=== PATIENT | female | born 1935 | race Caucasian/White ===

== ENCOUNTER 2016-11-13 16:33 | Inpatient (IN) ==
--- NOTE | 2016-11-13 19:18 | Emergency Department Note ---
Disposition Clinical Impression: Atrial fibrillation with RVR, DVT (deep venous thrombosis) Disposition: Admitted As Inpatient Referrals: Haven Laurent MD [Primary Care Provider] - Forms: ED Satisfaction Letter General Adult HPI - General Chief complaint: ED Extremity Problem,Nontraumatic Stated complaint: possible DVT R leg Time Seen by Provider: 11/13/16 18:50 Source: patient Limitations: no limitations - History of Present Illness HPI Narrative: This is an 81-year-old female who is a poor historian. She lets the family answer most questions for her. She has been seeing Dr. Gregory as her for peripheral vascular disease and apparently had an arterial occlusion of the right leg some time ago. She is not currently on any anticoagulants. She went to the [facility] urgent care and apparently got a Doppler of the right leg shows evidence of an acute occlusive thrombus in the right posterior tibial. So she does have a DVT. She was then sent in the emergency department from there. The patient does look dyspneic. Apparently she has chronic dyspnea and lives on oxygen at home. She was noted to have a low pulse ox on arrival Pain Scale: 4 - Related Data Home Medications Medication Instructions Recorded Confirmed Albuterol Sulfate [Ventolin Hfa] 2 puff IH TID PRN 01/24/16 05/25/16 Aspirin [Lo-Dose Aspirin EC] 81 mg PO DAILY 01/24/16 05/25/16 Atorvastatin [Lipitor] 40 mg PO DAILY 01/24/16 05/25/16 Calcium Carbonate [Calcium] 1,500 mg PO BID 01/24/16 05/25/16 Carvedilol [Coreg] 25 mg PO BID 01/24/16 05/25/16 Furosemide [Lasix] 20 mg PO DAILY 01/24/16 05/25/16 Iron Polysaccharide Complex 300 mg PO DAILY 01/24/16 05/25/16 [Ferrex 150] Levothyroxine Sodium [Tirosint] 50 mcg PO DAILY 01/24/16 05/25/16 Tramadol HCl [Tramadol HCl ER] 50 mg PO QID PRN 01/24/16 05/25/16 Budesonide/Formoterol 160/4.5 2 puff IH BIDR 04/26/16 05/25/16 [Symbicort 160/4.5] LORazepam [Ativan] 0.5 mg PO BID PRN 05/25/16 05/25/16 Oxygen 2 l NS DAILY PRN 05/25/16 05/25/16 Previous Rx's Medication Instructions Recorded HYDROcodone/Acet 5/325 mg [[place] 1 tab PO Q4H PRN #40 tablet 05/26/16 5-325 mg] Allergies Allergy/AdvReac Type Severity Reaction Status Date / Time Sulfa (Sulfonamide Allergy See Verified 05/25/16 07:08 Antibiotics) Comments All systems ED: reviewed and negative except as stated. Constitutional: Denies: fever Cardiovascular: Denies: chest pain Respiratory: Reports: dyspnea Gastrointestinal: Denies: abdominal pain Past Medical History - Past Medical History Attestation: Yes The following information was validated with the patient. Medical history: Reports: non-contributory, CHF, COPD, coronary artery disease, hyperlipidemia, hypertension, osteoporosis, renal disease, valvular heart disease Surgical history: Reports: appendectomy, cholecystectomy, orthopedic, other Psychiatric history: Reports: no psych history - Social History Smoking Status: Former smoker Smokeless Tobacco Status: No Alcohol use: Reports: none Drug use: Reports: none Physical Exam - General Limitations: no limitations General appearance: alert - Head Head exam: atraumatic - Eye Eye exam: Present: PERRL - ENT ENT exam: normal oropharynx - Respiratory Respiratory exam: Present: wheezes, other (Diminishment bilaterally) - Cardiovascular Cardiovascular exam: Present: tachycardia, irregular rhythm - Abdominal Exam Abdominal exam: Present: soft, Non-Tender - Extremities Exam Extremities exam: Present: other (She has diminished pulses in both lower extremities. Warm to touch on both sides. Normal capillary refill. No tenderness. ) Course Course Narrative: This patient presented with a report indicating new onset DVT in the right posterior tibial. However she is noted to be dyspneic and it is unclear if this is more of a chronic issue. It does kind of seemed that way. However we need to rule her out for pulmonary embolism. We ordered a CTA of the chest which was negative for pulmonary embolism but incidental aortic aneurysm found. She was also found to be in atrial fibrillation with rapid ventricular response. I ordered a Cardizem drip and we are starting her on Lovenox. I discussed the case with the hospitalist to arrange for admission. Vital Signs Temperature 98 F 11/13/16 16:55 Pulse Rate 95 11/13/16 16:55 Respiratory Rate 16 11/13/16 16:55 Blood Pressure 104/65 11/13/16 16:55 O2 Sat by Pulse Oximetry 92 11/13/16 16:55 Temperature 98 F 11/13/16 16:55 Pulse Rate 128 11/13/16 20:00 Respiratory Rate 16 11/13/16 20:00 Blood Pressure 114/85 11/13/16 20:00 O2 Sat by Pulse Oximetry 97 11/13/16 20:00 Oxygen Delivery Oxygen Delivery Nasal Cannula Medical Decision Making - Medical Records Medical records reviewed: Yes I reviewed the patient's medical records. - Lab Data Lab results reviewed: Yes I reviewed the patient's lab results. Result diagrams: 11/13/16 19:35 11/13/16 19:35 Lab Results 11/13/16 11/13/16 11/13/16 Range/Units 19:35 19:35 19:35 WBC 7.7 (4.3-11.1) K/mcL RBC 4.35 (3.82-4.97) M/mcL Hgb 12.4 (11.5-15.4) g/dL Hct 41.8 (35.3-44.9) % MCV 96.1 (83.0-100.0) fL MCH 28.5 (28.0-33.3) pg MCHC 29.7 L (31.6-35.5) g/dL RDW 15.6 H (11.5-14.5) % Plt Count 140 (140-400) K/mcL MPV 11.1 (9.4-12.4) fL Immature Gran % 0.3 (0-4) % Seg Neutrophils % 76.8 % Lymphocytes % 13.9 % Monocytes % 6.6 % Eosinophils % 1.8 % Basophils % 0.6 % Neutrophils # 5.9 (1.6-8.9) K/mcL Lymphocytes # 1.1 (0.6-4.6) K/mcL Monocytes # 0.5 (0.0-1.3) K/mcL Eosinophils # 0.1 (0.0-0.6) K/mcL Basophils # 0.1 (0.0-0.2) K/mcL PT 12.5 H (9.4-12.1) Seconds INR 1.2 Sodium 143 (136-145) mEq/L Potassium 4.4 (3.5-4.5) mEq/L Chloride 103 (98-109) mEq/L Carbon Dioxide 30 H (19-29) mEq/L BUN 31 H (7-20) mg/dL Creatinine 1.21 H (0.57-1.11) mg/dL Est GFR ( Amer) 52 L (> 60) Est GFR (Non-Af Amer) 43 L (> 60) BUN/Creatinine Ratio 26 (6-26) Glucose 89 (70-99) mg/dL Calculated Osmolality 302 H (280-300) Calcium 9.8 (8.6-10.8) mg/dL Troponin I (0-0.03) ng/mL B-Natriuretic Peptide (0-100) pg/mL 11/13/16 11/13/16 Range/Units 19:35 19:35 WBC (4.3-11.1) K/mcL RBC (3.82-4.97) M/mcL Hgb (11.5-15.4) g/dL Hct (35.3-44.9) % MCV (83.0-100.0) fL MCH (28.0-33.3) pg MCHC (31.6-35.5) g/dL RDW (11.5-14.5) % Plt Count (140-400) K/mcL MPV (9.4-12.4) fL Immature Gran % (0-4) % Seg Neutrophils % % Lymphocytes % % Monocytes % % Eosinophils % % Basophils % % Neutrophils # (1.6-8.9) K/mcL Lymphocytes # (0.6-4.6) K/mcL Monocytes # (0.0-1.3) K/mcL Eosinophils # (0.0-0.6) K/mcL Basophils # (0.0-0.2) K/mcL PT (9.4-12.1) Seconds INR Sodium (136-145) mEq/L Potassium (3.5-4.5) mEq/L Chloride (98-109) mEq/L Carbon Dioxide (19-29) mEq/L BUN (7-20) mg/dL Creatinine (0.57-1.11) mg/dL Est GFR ( Amer) (> 60) Est GFR (Non-Af Amer) (> 60) BUN/Creatinine Ratio (6-26) Glucose (70-99) mg/dL Calculated Osmolality (280-300) Calcium (8.6-10.8) mg/dL Troponin I 0.03 (0-0.03) ng/mL B-Natriuretic Peptide 3252 H (0-100) pg/mL - Radiology Data Radiology results reviewed: Yes I reviewed the patient's radiology results. Critical Care Time Critical Care Time: Yes ( ) Total Critical Care Time: 30 Attestation: There was a high probability of clinically significant and/or life-threatening deterioration in the course of this patient's care required my daily intervention. Total critical care time of 30 minutes exclusive of procedures.
[2016-11-13 19:41] LABS: Basophils # 0.1 K/mcL (0.0-0.2); Basophils % 0.6 %; Eosinophils # 0.1 K/mcL (0.0-0.6); Eosinophils % 1.8 %; Hematocrit 41.8 % (35.3-44.9); Hemoglobin 12.4 g/dL (11.5-15.4); Immature Granulocytes % 0.3 % (0-4); Lymphocytes # 1.1 K/mcL (0.6-4.6); Lymphocytes % 13.9 %; Mean Corpuscular HGB Conc 29.7 g/dL (31.6-35.5); Mean Corpuscular Hemoglobin 28.5 pg (28.0-33.3); Mean Corpuscular Volume 96.1 fL (83.0-100.0); Mean Platelet Volume 11.1 fL (9.4-12.4); Monocytes # 0.5 K/mcL (0.0-1.3); Monocytes % 6.6 %; Neutrophils # 5.9 K/mcL (1.6-8.9); Platelet Count 140 K/mcL (140-400); Red Blood Count 4.35 M/mcL (3.82-4.97); Red Cell Distribution Width 15.6 % (11.5-14.5); Segmented Neutrophils % 76.8 %
[2016-11-13 19:48] LABS: INR 1.2; Prothrombin Time 12.5 Seconds (9.4-12.1)
[2016-11-13 19:54] LABS: Calcium 9.8 mg/dL (8.6-10.8); Potassium 4.4 mEq/L (3.5-4.5)
[2016-11-13] MEDS ORDERED: Enoxaparin Weight Dosing SQ STA (22:07)
[2016-11-13] MEDS ORDERED: *HR* Enoxaparin 60 MG/0.6 ML SYRINGE SQ STA (22:09)
[2016-11-13 22:51] LABS: Thyroid Stimulating Hormone 3.81 mcIU/mL (0.350-4.840)
[2016-11-13] MEDS ORDERED: Naloxone 0.4 MG/ML INJ IVP PRN (23:53)
[2016-11-13] MEDS ORDERED: Ondansetron 4 MG/2 ML VIAL IVP PRN (23:53)
[2016-11-13] MEDS ORDERED: Acetaminophen 325 MG TABLET PO PRN (23:53)
--- NOTE | 2016-11-14 00:35 | Internal Med History&Physical ---
Date of Encounter: 11/14/16 Time of Encounter: 00:33 Assessment and Plan (1) Atrial fibrillation with RVR Current visit: Yes Status: Acute Patient does not have a history of atrial fibrillation. She has a history of worsening shortness of breath over the past one month. She was sent to the emergency department due to new onset DVT. Incidentally, she was found to have atrial fibrillation with RVR. Patient be admitted to the hospital to inpatient status. Expected to be in hospital for at least 2 midnights. Expected discharge disposition is to home. High risk due to risk of lethal arrhythmias. Echocardiogram will be obtained. Patient's heart rate is already under better control with Cardizem drip. We will place the patient on by mouth Cardizem and discontinue the drip. Patient is already on Coreg 25 mg by mouth twice a day. Will continue the same. Check TSH level. Cardiology consult. Patient follows up with Dr. Bee as an outpatient. [id number] score of 5 (1 for hypertension, 2 for age, 1 for vascular risk factors and 1 for female sex) Patient received a single dose of Lovenox in the emergency department. As the patient has chronic kidney disease stage III, will refrain from using further Lovenox. Will await cardiology consult for further recommendations about anticoagulation. Start heparin drip 12 hours after last lovenox dose. (2) DVT (deep venous thrombosis) Current visit: Yes Status: Acute Patient has received a single dose of Lovenox. Given her chronic kidney disease stage III, we will start her on heparin drip. Patient will require lifelong anticoagulation due to her atrial fibrillation. Will await cardiology input regarding choice of anticoagulant. Qualifiers: DVT location: lower extremity Affected thrombotic vein of extremity: popliteal Laterality: right Chronicity: acute Qualified Code(s): I82.431 - Acute embolism and thrombosis of right popliteal vein (3) CHF (congestive heart failure) Current visit: Yes Status: Chronic Patient had an echo in February 2015 which revealed diastolic dysfunction with preserved ejection fraction. Patient appears euvolemic. Gentle hydration as the patient received intravenous contrast dye. Repeat echocardiogram due to new onset atrial fibrillation. Cardiac consult. Qualifiers: Congestive heart failure type: diastolic Congestive heart failure chronicity: chronic Qualified Code(s): I50.32 - Chronic diastolic (congestive ) heart failure (4) Essential hypertension Current visit: Yes Status: Chronic Control blood pressure. Hold KRISTINE inhibitor due to receiving contrast dye and her renal function. Monitor renal function and urine output. (5) CKD (chronic kidney disease) Current visit: Yes Status: Acute Sees Dr. Sloan. Renal function is stable and at baseline. If worsens, will consult renal. Qualifiers: Chronic kidney disease stage: stage 3 (moderate) Qualified Code(s): N18.3 - Chronic kidney disease, stage 3 (moderate) (6) COPD (chronic obstructive pulmonary disease) Current visit: Yes Status: Chronic Stable without exacerbation. Resume home meds. Qualifiers: COPD type: emphysema Emphysema type: panlobular Qualified Code(s): J43.1 - Panlobular emphysema Internal Medicine - H&P: HPI Chief complaint: DVT Admitted From: Emergency Dept Plans for Post Hospital Care: Home History of present illness: Ms. Estrada is a 81 year old female who presents to the emergency department after she was found to have a DVT at [facility]. 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 The patient has been having swelling in her right lower extremity. For this, Dopplers of her right lower extremity were ordered. The patient had this test performed today morning. A DVT was found in the right popliteal vein. Hence, the patient was sent to the emergency department. In the emergency department, the patient was found to have atrial fibrillation with rapid ventricular response. She was placed on a Cardizem drip and is being admitted for the same. The patient is accompanied in the room by her son, [id number] and grandson. They have assisted with providing history. According to the family, the patient has become more short of breath over the past month. Apparently, the patient has oxygen at home but usually does not use it. However, over the last month, the patient has been using 2 L of oxygen intermittently during the day and all through the night which is unusual for her. The patient has been complaining of shortness of breath. She denies any orthopnea or paroxysmal nocturnal dyspnea. She denies any cough or wheezing. She reports intermittent palpitations, lightheadedness and headaches. She denies any chest pain or tightness. She denies any fever or chills. She reports chronic abdominal pain but no acute exacerbation. She denies any diarrhea or constipation, nausea or vomiting. She reports swelling in her right lower extremity for which she had the Dopplers performed. Past Med Surg Social Fam HX - Past Medical History Attestation: Yes The following information was validated with the patient. Source: patient, obtained from family Medical history: CHF, COPD, hyperlipidemia, hypertension, osteoporosis, renal disease, valvular heart disease Psychiatric history: no psych history - Past Surgical History Surgical History: appendectomy, cholecystectomy, orthopedic, other - Social History Smoking Status: Former smoker Smokeless Tobacco Status: No Alcohol use: none Drug use: none Current living situation: Home, With Family Activity Level: Uses cane/walker Recent Out of Country Travel Within the Last 8 Weeks: No Exposure or Possible Exposure to Illness During Travel: No - Family History Son Name: Hiram estrada Age: 57 Living Status: Still Living Hx Family Cardiac Disorders: No Hx Family Respiratory Disorders: No Hx Family Cancer: No Hx Family GI Disorders: No Hx Family Genitourinary Disorders: No Hx Family Endocrine Disorder: No Hx Family Musculoskeletal Disorders: No Hx Family Neuromuscular Disorders: No Hx Family Neurologic Disorders: No Hx Family HEENT Disorders: No Hx Family Autoimmune Disorders: No Hx Family Reproductive Disorders: No Hx Family Psychosocial Disorders: No Hx Family Medical Disorders: No Internal Medicine - H&P: Meds Albuterol Sulfate [Ventolin Hfa] 2 puff IH TID PRN 01/24/16 [History] Aspirin [Lo-Dose Aspirin EC] 81 mg PO DAILY 01/24/16 [History] Atorvastatin [Lipitor] 40 mg PO HS 01/24/16 [History] Calcium Carbonate [Calcium] 1,500 mg PO BID 01/24/16 [History] Carvedilol [Coreg] 25 mg PO BID 01/24/16 [History] Furosemide [Lasix] 20 mg PO DAILY 01/24/16 [History] Iron Polysaccharide Complex [Ferrex 150] 300 mg PO DAILY 01/24/16 [History] Levothyroxine Sodium [Tirosint] 50 mcg PO QAM 01/24/16 [History] Budesonide/Formoterol 160/4.5 [Symbicort 160/4.5] 2 puff IH BIDR 04/26/16 [ History] LORazepam [Ativan] 0.5 mg PO BID PRN 05/25/16 [History] Oxygen 2 l NS DAILY PRN 05/25/16 [History] Albuterol Neb [Proventil Neb] 2.5 mg IH TID PRN 11/13/16 [History] Calcitriol [Rocaltrol] 0.25 mcg PO DAILY 11/13/16 [History] Tiotropium [Spiriva] 18 mcg IH 0700 11/13/16 [History] Tramadol HCl [Ultram] 50 mg PO Q6H PRN 11/13/16 [History] Allergies Sulfa (Sulfonamide Antibiotics) Allergy (Verified 05/25/16 07:08) See Comments patient cannot remember reaction to medication All Systems PM: A 10-system review of systems was performed and is negative for pertinent findings except as documented above in the HPI. Review of systems: 10 systems have been reviewed and are negative except as mentioned in the history of present illness - Constitutional Vitals: Temp Pulse Resp BP Pulse Ox 98.3 F 98 20 110/72 95 11/13/16 23:30 11/13/16 23:30 11/13/16 23:30 11/13/16 23:30 11/13/16 23:30 Exam: Gen.: Lying in bed. No acute distress. Eyes: Pupils equal, round and reactive to light. Extraocular muscles intact. ENT: Dry mucous membranes. No oropharyngeal erythema or discharge. Chest: Clear to auscultation bilaterally. No adventitious sounds present. CVS: First and second heart sounds present. No murmurs, rubs or gallops. Irregularly irregular rate and rhythm. Tachycardia present. 2+ pitting pedal edema in the right lower extremity. Abdomen: Soft, nontender, nondistended. Bowel sounds present. No hepatosplenomegaly. Skin: No decubitus ulcers appreciated. Erythema over the right lower extremity. Tenderness to palpation over the right calf. 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 Psychiatric: Alert, awake and oriented to time, place and person. Lymphatic system: No lymphadenopathy appreciated Internal Med - H&P Results - Labs CBC & Chem 7: 11/13/16 19:35 11/13/16 19:35 - EKG Data -: EKG Interpreted by Myself (Atrial fibrillation with rapid ventricular response) EKG shows normal: QRS complexes (Right bundle branch block) Rate: tachycardia - EKG Data Prior EKG available for review: yes When compared to previous EKG: there are significant changes Interpretation IM: other (New onset atrial fibrillation) - Diagnostic Studies Chest x-ray Status: image reviewed by me (No acute infiltrates or abnormalities seen) Other Images Additional comments: Nuclear stress test in May 2016 was negative for reversible ischemia Echocardiogram in February 2015 reveals ejection fraction of 60%, moderate left ventricular diastolic dysfunction. It was a dull motion consistent with bundle branch block. Mild to moderate aortic regurgitation.
[2016-11-14] MEDS ORDERED: NON-FORMULARY MEDICATION 1 EACH EACH (Oxygen [Oxygen] 2 L) NS PRN (00:40)
[2016-11-14] MEDS ORDERED: 0.9 % Sodium Chloride 1,000 ML IVC SCH (00:45)
[2016-11-14] MEDS ORDERED: *HR* Heparin 5,000 UNIT/ML VIAL IVP ONE ×2 (00:55→10:30)
[2016-11-14] MEDS ORDERED: *HR* Heparin 5,000 UNIT/ML VIAL IVP PRN ×3 (00:55→10:30)
[2016-11-14] MEDS ORDERED: Heparin 25,000 UNIT/500 ML D5W 25,000 UNIT/500 ML MLS IVC SCH (01:00)
[2016-11-14 03:23] LABS: Basophils # 0.1 K/mcL (0.0-0.2); Basophils % 0.8 %; Eosinophils # 0.2 K/mcL (0.0-0.6); Hematocrit 39.7 % (35.3-44.9); Hemoglobin 11.8 g/dL (11.5-15.4); Immature Granulocytes % 0.3 % (0-4); Lymphocytes # 1.2 K/mcL (0.6-4.6); Lymphocytes % 16.4 %; Mean Corpuscular HGB Conc 29.7 g/dL (31.6-35.5); Mean Corpuscular Hemoglobin 29.3 pg (28.0-33.3); Mean Corpuscular Volume 98.5 fL (83.0-100.0); Mean Platelet Volume 12.1 fL (9.4-12.4); Monocytes # 0.5 K/mcL (0.0-1.3); Monocytes % 6.1 %; Neutrophils # 5.5 K/mcL (1.6-8.9); Platelet Count 128 K/mcL (140-400); Red Blood Count 4.03 M/mcL (3.82-4.97); Red Cell Distribution Width 15.4 % (11.5-14.5); Segmented Neutrophils % 74.4 %
[2016-11-14 03:30] LABS: INR 1.2; Prothrombin Time 12.5 Seconds (9.4-12.1)
[2016-11-14 03:40] LABS: Albumin 2.9 g/dL (3.5-5.0); Albumin/Globulin Ratio 1.3 (1.1-2.2); Bilirubin,Total 1.1 mg/dL (0.2-1.2); Calcium 9.7 mg/dL (8.6-10.8); Globulin 2.3 g/dL (2.4-3.5); Potassium 4.2 mEq/L (3.5-4.5); Total Protein 5.2 g/dL (6.0-8.3)
[2016-11-14] MEDS ORDERED: Tiotropium 18 MCG inhalation IH SCH (07:00)
[2016-11-14] MEDS: traMADol 50 MG TABLET PO PRN (07:07)
[2016-11-14] MEDS: Iron Polysaccharide Complex 150 MG CAPSULE PO SCH (08:49)
[2016-11-14] MEDS: Aspirin Enteric Coated 81 MG Tablet PO SCH (08:50)
[2016-11-14] MEDS: Budesonide/Formoterol 160/4.5 MDI IH SCH ×2 (09:05→22:22)
--- NOTE | 2016-11-14 09:52 | Cardiology Consult Note ---
Date of Encounter: 11/14/16 Time of Encounter: 09:00 Assessment and Plan (1) Atrial fibrillation with RVR Current Visit: Yes Status: Acute This is a resident progress note pending review by attending front desk associate For rate control continue Cardizem short acting today. Evaluate in morning and likely switch to long acting Continue Coreg 25 mg BID [id number] of 5, no h/o GI or other bleed per patient Anticoagulation with novel vs. Coumadin. Will obtain cost information of anticoagulant options (2) CHF (congestive heart failure) Current Visit: Yes Status: Chronic Euvolemic Echocardiogram pending Qualifiers: Congestive heart failure type: diastolic Congestive heart failure chronicity: chronic Qualified Code(s): I50.32 - Chronic diastolic (congestive ) heart failure (3) Aortic aneurysm Current Visit: Yes Status: Acute 5 cm aneurysm of ascending aorta on CTA Consider involvement of cardiothoracic team Qualifiers: Qualified Code(s): I71.9 - Aortic aneurysm of unspecified site, without rupture (4) Essential hypertension Current Visit: Yes Status: Chronic BP stable Continue current medications Discussion w patient/family: The assessment and plan as outlined above was discussed with the patient and/or family members who expressed understanding and agreement. All questions were answered. Thank you for involving us in the care of your patient. Please call with any questions. History of Present Illness Consult date: 11/14/16 Consult reason: New onset a. fib Chief complaint: New onset a. fib History of present illness: Ms. Estrada is a 81 year old female with past medical history including PVD, history of arterial occlusion of the right lower extremity not on anticoagulation, COPD on oxygen at home recently increased to 2 L continuously. She was reportedly seen at [place] urgent care yesterday for dyspnea where Doppler ultrasound was positive for DVT of the right posterior tibial vein. Upon arrival to the ED CTA chest was negative for PE. Patient was found to be in A. fib with RVR, started on Cardizem and Lovenox. [id number] = 5. Lovenox was started in emergency department but discontinued by hospitalist team secondary to CKD and started on heparin. Heart rate has been stable. Initial troponins 0.03, 0.02, 0.03. TSH normal. BNP = 3252. The patient had an echocardiogram in 2014 that showed moderate diastolic dysfunction with preserved ejection fraction of 60%, dull motion consistent with bundle branch block, and mild-moderate aortic regurgitation. Patient was seen and evaluated this morning and reports that her breathing is improved today. She denies chest pain, shortness of breath, palpitations or new complaints Past Med Surg Social Fam HX - Past Medical History Medical history: CHF, COPD, hyperlipidemia, hypertension, osteoporosis, renal disease, valvular heart disease Psychiatric history: no psych history - Past Surgical History Surgical History: appendectomy, cholecystectomy, orthopedic, other - Social History Smoking Status: Former smoker Smokeless Tobacco Status: No Alcohol use: none Drug use: none - Family History Son Name: Hiram estrada Age: 57 Living Status: Still Living Hx Family Cardiac Disorders: No Hx Family Respiratory Disorders: No Hx Family Cancer: No Hx Family GI Disorders: No Hx Family Genitourinary Disorders: No Hx Family Endocrine Disorder: No Hx Family Musculoskeletal Disorders: No Hx Family Neuromuscular Disorders: No Hx Family Neurologic Disorders: No Hx Family HEENT Disorders: No Hx Family Autoimmune Disorders: No Hx Family Reproductive Disorders: No Hx Family Psychosocial Disorders: No Hx Family Medical Disorders: No Medications and Allergies Albuterol Sulfate [Ventolin Hfa] 2 puff IH TID PRN 01/24/16 [History] Aspirin [Lo-Dose Aspirin EC] 81 mg PO DAILY 01/24/16 [History] Atorvastatin [Lipitor] 40 mg PO HS 01/24/16 [History] Calcium Carbonate [Calcium] 1,500 mg PO BID 01/24/16 [History] Carvedilol [Coreg] 25 mg PO BID 01/24/16 [History] Furosemide [Lasix] 20 mg PO DAILY 01/24/16 [History] Iron Polysaccharide Complex [Ferrex 150] 300 mg PO DAILY 01/24/16 [History] Levothyroxine Sodium [Tirosint] 50 mcg PO QAM 01/24/16 [History] Budesonide/Formoterol 160/4.5 [Symbicort 160/4.5] 2 puff IH BIDR 04/26/16 [ History] LORazepam [Ativan] 0.5 mg PO BID PRN 05/25/16 [History] Oxygen 2 l NS DAILY PRN 05/25/16 [History] Albuterol Neb [Proventil Neb] 2.5 mg IH TID PRN 11/13/16 [History] Calcitriol [Rocaltrol] 0.25 mcg PO DAILY 11/13/16 [History] Tiotropium [Spiriva] 18 mcg IH 0700 11/13/16 [History] Tramadol HCl [Ultram] 50 mg PO Q6H PRN 11/13/16 [History] Allergies Sulfa (Sulfonamide Antibiotics) Allergy (Verified 05/25/16 07:08) See Comments patient cannot remember reaction to medication All Systems Review: A 10-system review of systems was performed and is negative for pertinent findings except as documented above in the HPI. - Constitutional Constitutional: no fever(s) - Cardiovascular Cardiovascular: as per HPI Physical Examination Vital Signs, Last 4 Hours Temp Pulse Resp BP Pulse Ox 11/14/16 09:07 16 96 11/14/16 08:58 96 11/14/16 06:55 97.7 F 85 16 124/75 96 General: Conversant, No Apparent Distress HEENT: Mucus Membranes Moist (Irregular rate) Cardiac: Normal S1 and S2, No Murmur Lungs: Normal Breath Sounds, No Wheeze, Rales, Rhonchi Neuro: Alert and responsive Extremities: Other (1+ pitting pedal edema) Results 11/14/16 01:19 11/14/16 01:19 Lab Results 11/14/16 11/14/16 11/14/16 01:19 01:19 01:19 WBC 7.4 Hgb 11.8 Hct 39.7 Plt Count 128 L INR APTT Sodium 141 Potassium 4.2 Chloride 103 Carbon Dioxide 33 H BUN 31 H Creatinine 1.21 H Glucose 109 H Calcium 9.7 Total Bilirubin 1.1 AST 20 ALT 19 Alkaline Phosphatase 151 H Troponin I 0.02 TSH 11/14/16 11/14/16 11/14/16 01:19 01:19 05:54 WBC Hgb Hct Plt Count INR 1.2 APTT 30.0 Sodium Potassium Chloride Carbon Dioxide BUN Creatinine Glucose Calcium Total Bilirubin AST ALT Alkaline Phosphatase Troponin I 0.03 TSH 3.010 Consult Discharge Plan - Plan Referrals: Haven Laurent MD [Primary Care Provider] -
--- NOTE | 2016-11-14 11:32 | Electrocardiograph Report ---
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
[2016-11-14] MEDS: Heparin 25,000 UNIT/500 ML D5W 25,000 UNIT/500 ML MLS IVC SCH (11:51)
[2016-11-14] MEDS ORDERED: Fluconazole 100 MG TABLET PO ONE (12:02)
--- NOTE | 2016-11-14 12:02 | Event Note ---
Date of Encounter: 11/14/16 Time of Encounter: 12:02 81 yo M with past medical history of COPD oxygen dependent at 2L NC, HTN, CKD 3 , and diastolic HF who presents with right LE swelling. Venous doppler of right leg was positive for acute DVT on posterior tibial vein. CTA chest shows no PE, ascending aortic aneurysm 5cm in diameter. On arrival to the floor, she was found to be in atrial fibrillation with RVR. Started on oral cardizem, and iv heparin. Today, she reports mild pain in right Leg. exam showed 2+ right LE edema. no chest pain. no shortness of breath. echocardiogram shows moderate to severe LV systolic LVEF 35%, moderate aortic regurgitation, severe TR. Appreciate cardiology consult. continue Coreg and oral cardizem. heparin drip.
[2016-11-14] MEDS: Nystatin Cream 15 GM TUBE TP SCH ×3 (15:54→21:18)
[2016-11-14] MEDS ORDERED: Ipratropium Neb 0.5 MG NEBULIZER IH SCH (17:15)
[2016-11-14] MEDS: Levalbuterol 1 PUFF INHALER IH SCH ×2 (18:56→22:22)
[2016-11-14] MEDS ORDERED: *HR* LORazepam 0.5 MG TABLET PO PRN (18:59)
[2016-11-14] MEDS: Ipratropium 1 PUFF INHALER IH SCH (22:22)
[2016-11-15] MEDS: *HR* Heparin 5,000 UNIT/ML VIAL IVP PRN ×2 (01:45→04:15)
[2016-11-15] MEDS: traMADol 50 MG TABLET PO PRN (01:45)
[2016-11-15] MEDS: Levalbuterol 1 PUFF INHALER IH SCH ×4 (04:36→23:17)
[2016-11-15] MEDS: Ipratropium 1 PUFF INHALER IH SCH ×4 (04:36→23:17)
[2016-11-15 06:24] LABS: Basophils # 0.1 K/mcL (0.0-0.2); Basophils % 0.8 %; Eosinophils # 0.2 K/mcL (0.0-0.6); Hematocrit 38.1 % (35.3-44.9); Hemoglobin 11.4 g/dL (11.5-15.4); Immature Granulocytes % 0.5 % (0-4); Immature Platelets 5.4 % (1.1-6.1); Lymphocytes # 0.7 K/mcL (0.6-4.6); Lymphocytes % 12.1 %; Mean Corpuscular HGB Conc 29.9 g/dL (31.6-35.5); Mean Corpuscular Hemoglobin 28.9 pg (28.0-33.3); Mean Corpuscular Volume 96.5 fL (83.0-100.0); Mean Platelet Volume 10.7 fL (9.4-12.4); Monocytes # 0.3 K/mcL (0.0-1.3); Monocytes % 4.6 %; Neutrophils # 4.8 K/mcL (1.6-8.9); Platelet Count 121 K/mcL (140-400); Red Blood Count 3.95 M/mcL (3.82-4.97); Red Cell Distribution Width 15.4 % (11.5-14.5)
[2016-11-15 06:26] LABS: INR 1.2; Prothrombin Time 12.7 Seconds (9.4-12.1)
[2016-11-15 06:42] LABS: BUN/Creatinine Ratio 28 (6-26); Blood Urea Nitrogen 24 mg/dL (7-20); Calcium 9.5 mg/dL (8.6-10.8); Carbon Dioxide 31 mEq/L (19-29); Chloride 105 mEq/L (98-109); Glucose 93 mg/dL (70-99); Magnesium 1.5 mg/dL (1.6-2.6); Osmolality,Calculated 296 (280-300); Potassium 4.1 mEq/L (3.5-4.5); Sodium 141 mEq/L (136-145); eGFR For African Americans > 60 (> 60); eGFR For Non-African Americans > 60 (> 60)
[2016-11-15] MEDS: Aspirin Enteric Coated 81 MG Tablet PO SCH (08:26)
[2016-11-15] MEDS: Iron Polysaccharide Complex 150 MG CAPSULE PO SCH (08:26)
[2016-11-15 08:38] LABS: Activated Partial Thrombo Time 126.2 Seconds (26.0-36.0)
[2016-11-15] MEDS: Nystatin Cream 15 GM TUBE TP SCH ×3 (08:38→23:13)
[2016-11-15 08:54] LABS: Heparin anti-factor XA UFH 1.06 IU/mL (0.30-0.70)
--- NOTE | 2016-11-15 09:08 | Internal Med Progress Note ---
<Primitivo Shine - Last Filed: 11/15/16 13:54> Date of Encounter: 11/15/16 Time of Encounter: 09:07 - Assessment and plan (1) COPD (chronic obstructive pulmonary disease) Current Visit: Yes Status: Chronic Assessment and plan: Known history of COPD, patient denies recent smoking. Said that she had not been using her 2 L of oxygen at home until recently and she felt that she had needed a more continuously. - No wheezing or increasing oxygen demand, no purulent sputum. Plan: -Continue Symbicort, ipratropium inhalers Qualifiers: COPD type: emphysema Emphysema type: panlobular Qualified Code(s): J43.1 - Panlobular emphysema (2) CAD (coronary artery disease) Current Visit: No Status: Chronic Assessment and plan: Known history of coronary artery disease and bilateral peripheral artery disease -severe. Patient in recent iliac endarterectomy in late 2015. Known history of systolic heart failure with reduced ejection fraction. Plan: - Continue Coreg, atorvastatin 40 mg, aspirin Qualifiers: Coronary Disease-Associated Artery/Lesion type: [place] artery [place] vs. transplanted heart: [place] heart Associated angina: without angina Qualified Code(s): I25.10 - Atherosclerotic heart disease of [place] coronary artery without angina pectoris (3) Essential hypertension Current Visit: Yes Status: Chronic Assessment and plan: Patient has known history of hypertension, current blood pressure stable. plan - Patient already on Coreg, blood pressure stable. (4) Atrial fibrillation with RVR Current Visit: Yes Status: Acute Assessment and plan: Patient found to be in new onset atrial fibrillation with RVR and started on Cardizem drip, patient is currently off Cardizem drip with a heart rate of roughly around 100. -Patient already on beta jorge at home. -TSH performed yesterday normal, troponin level within normal range, magnesium 1.5 receiving current replacement. Plan: - Cardiology following patient, with plans to increase home dose of Coreg. - [id number] of 5 will require psychologist research assistant anticoagulation if not a fall risk. (5) DVT (deep venous thrombosis) Current Visit: Yes Status: Acute Assessment and plan: Patient is on heparin drip for DVT. -Continue heparin drip - Repeat Doppler of right lower extremity Qualifiers: DVT location: lower extremity Affected thrombotic vein of extremity: popliteal Laterality: right Chronicity: acute Qualified Code(s): I82.431 - Acute embolism and thrombosis of right popliteal vein (6) CKD (chronic kidney disease) Current Visit: Yes Status: Acute Assessment and plan: Patient has stage III chronic kidney disease. Renal function stable Plan: - Renally dose antibiotics and avoid nephrotoxic medications - Follow renal function daily. Qualifiers: Chronic kidney disease stage: stage 3 (moderate) Qualified Code(s): N18.3 - Chronic kidney disease, stage 3 (moderate) (7) Aortic aneurysm Current Visit: Yes Status: Acute Assessment and plan: Patient has an ascending aortic aneurysm that is 5 cm. Plan: - Vascular surgery evaluation. Qualifiers: Aortic location: thoracic aorta Presence of rupture: without rupture Qualified Code(s): I71.2 - Thoracic aortic aneurysm, without rupture (8) Hypothyroidism Current Visit: Yes Status: Acute Assessment and plan: Patient has known hypothyroidism on levothyroxine at home. - TSH is within normal limits. Plan: -Continue home dose levothyroxine patient. Qualifiers: Qualified Code(s): E03.9 - Hypothyroidism, unspecified - Subjective Interval history: Miss Palafox 81-year-old female seen and evaluated patient bedside this morning. She is alert awake interactive no acute distress. She does complain of some mild shortness of breath but denies any chest pain, chest pressure, dizziness lightheadedness nausea vomiting diarrhea constipation. She is unsure if she has ever had a heart attack in the past but does have a diagnosis of heart failure in the past. She does feel that she has some beating in her chest but improved compared to yesterday. She denies any other major medical concerns at this time. - Constitutional Vitals: Temp Pulse Resp BP Pulse Ox 97.7 F 100 18 107/77 94 11/15/16 06:57 11/15/16 06:57 11/15/16 06:57 11/15/16 06:57 11/15/16 08:34 Exam: General: Patient alert, awake, oriented 3, interactive, in no acute distress HEENT: Normocephalic, atraumatic, pupils equal reactive to light, nasal cavity patent and open septum median position, oral mucosa moist, uvula midline, neck supple trachea midline no palpable lymphadenopathy, no thyromegaly. Chest: Symmetric bilateral correlating with respiratory effort, effort nonlabored. Cardiac: Irregularly irregular heart rate and rhythm, bilateral JVD present no bruits appreciated bilateral carotids, Radial pulses 2+ bilateral, posterior tibial and dorsal pedal pulses 2+ bilateral. Respiratory: Crackles appreciated in bilateral lung bases, clear to auscultation was lung haro. Abdomen: Soft, nontender, positive bowel sounds, no palpable masses appreciated on examination, dependent edema appreciated in bilateral lower back region and gluteus ana lilia. Extremities: Symmetric bilateral, patient has erythema and 2+ edema on the right lower extremity and 1+ edema on the left. patient moving all 4 extremities spontaneously. Neurologic: No focal deficits appreciated on examination. Face symmetric, muscle strength symmetric bilateral upper and lower extremities. Internal Medicine: Result - Labs CBC & Chem 7: 11/15/16 06:01 11/15/16 06:01 Labs: Short CBC 11/15/16 Range/Units 06:01 WBC 6.0 (4.3-11.1) K/mcL Hgb 11.4 L (11.5-15.4) g/dL Hct 38.1 (35.3-44.9) % Plt Count 121 L (140-400) K/mcL Neutrophils # 4.8 (1.6-8.9) K/mcL BMP 11/15/16 06:01 Sodium 141 Potassium 4.1 Chloride 105 Carbon Dioxide 31 H BUN 24 H Creatinine 0.85 Glucose 93 Calcium 9.5 - ABG Interpretation ABG results: PT/INR, D-dimer PT 12.7 Seconds (9.4-12.1) H 11/15/16 06:01 Consult Discharge Plan - Plan Referrals: Haven Laurent MD [Primary Care Provider] - <Sera Saucedo E - Last Filed: 11/15/16 16:29> Date of Encounter: 11/15/16 - Constitutional Vitals: Temp Pulse Resp BP Pulse Ox 97.5 F L 92 19 107/58 98 11/15/16 15:48 11/15/16 15:48 11/15/16 15:48 11/15/16 15:48 11/15/16 15:48 Internal Medicine: Result - Labs CBC & Chem 7: 11/15/16 06:01 11/15/16 06:01 Labs: Short CBC 11/15/16 Range/Units 06:01 WBC 6.0 (4.3-11.1) K/mcL Hgb 11.4 L (11.5-15.4) g/dL Hct 38.1 (35.3-44.9) % Plt Count 121 L (140-400) K/mcL Neutrophils # 4.8 (1.6-8.9) K/mcL BMP 11/15/16 06:01 Sodium 141 Potassium 4.1 Chloride 105 Carbon Dioxide 31 H BUN 24 H Creatinine 0.85 Glucose 93 Calcium 9.5 - ABG Interpretation ABG results: PT/INR, D-dimer PT 12.7 Seconds (9.4-12.1) H 11/15/16 06:01 - Attending Attestation I examined this patient and reviewed laboratory, imaging and all diagnostic data. My medical decision-making was reviewed with Dr Darek Shine - Resident Physician. I agree with the documented findings, disposition and treatment plan as described above.
[2016-11-15] MEDS ORDERED: Diltiazem CD (24hr) 120 MG CAPSULE PO SCH (09:15)
[2016-11-15] MEDS ORDERED: Magnesium Sulfate 1 GM in D5% in Water 100 ML IVPB ONE (09:51)
--- NOTE | 2016-11-15 09:58 | Cardiology Consult Note ---
Date of Encounter: 11/15/16 Time of Encounter: 09:00 Assessment and Plan (1) Atrial fibrillation with RVR Current Visit: Yes Status: Acute This is a resident progress note pending review by attending sparker and patcher For rate control continue Cardizem short acting today. Evaluate in morning and likely switch to long acting Continue Coreg 25 mg BID [id number] of 5, no h/o GI or other bleed per patient Anticoagulation with novel vs. Coumadin. Will obtain cost information of anticoagulant options (2) CHF (congestive heart failure) Current Visit: Yes Status: Chronic Euvolemic Echocardiogram pending Qualifiers: Congestive heart failure type: diastolic Congestive heart failure chronicity: chronic Qualified Code(s): I50.32 - Chronic diastolic (congestive ) heart failure (3) Aortic aneurysm Current Visit: Yes Status: Acute 5 cm aneurysm of ascending aorta on CTA Consider involvement of cardiothoracic team Qualifiers: Qualified Code(s): I71.9 - Aortic aneurysm of unspecified site, without rupture (4) Essential hypertension Current Visit: Yes Status: Chronic BP stable Continue current medications Discussion w patient/family: The assessment and plan as outlined above was discussed with the patient and/or family members who expressed understanding and agreement. All questions were answered. Thank you for involving us in the care of your patient. Please call with any questions. History of Present Illness History of present illness: Ms. Estrada is a 81 year old female Past Med Surg Social Fam HX - Past Medical History Medical history: CHF, COPD, hyperlipidemia, hypertension, osteoporosis, renal disease, valvular heart disease Psychiatric history: no psych history - Past Surgical History Surgical History: appendectomy, cholecystectomy, orthopedic, other - Social History Smoking Status: Former smoker Smokeless Tobacco Status: No Alcohol use: none Drug use: none - Family History Son Name: Hiram estrada Age: 57 Living Status: Still Living Hx Family Cardiac Disorders: No Hx Family Respiratory Disorders: No Hx Family Cancer: No Hx Family GI Disorders: No Hx Family Genitourinary Disorders: No Hx Family Endocrine Disorder: No Hx Family Musculoskeletal Disorders: No Hx Family Neuromuscular Disorders: No Hx Family Neurologic Disorders: No Hx Family HEENT Disorders: No Hx Family Autoimmune Disorders: No Hx Family Reproductive Disorders: No Hx Family Psychosocial Disorders: No Hx Family Medical Disorders: No Medications and Allergies Albuterol Sulfate [Ventolin Hfa] 2 puff IH TID PRN 01/24/16 [History] Aspirin [Lo-Dose Aspirin EC] 81 mg PO DAILY 01/24/16 [History] Atorvastatin [Lipitor] 40 mg PO HS 01/24/16 [History] Calcium Carbonate [Calcium] 1,500 mg PO BID 01/24/16 [History] Carvedilol [Coreg] 25 mg PO BID 01/24/16 [History] Furosemide [Lasix] 20 mg PO DAILY 01/24/16 [History] Iron Polysaccharide Complex [Ferrex 150] 300 mg PO DAILY 01/24/16 [History] Levothyroxine Sodium [Tirosint] 50 mcg PO QAM 01/24/16 [History] Budesonide/Formoterol 160/4.5 [Symbicort 160/4.5] 2 puff IH BIDR 04/26/16 [ History] LORazepam [Ativan] 0.5 mg PO BID PRN 05/25/16 [History] Oxygen 2 l NS DAILY PRN 05/25/16 [History] Albuterol Neb [Proventil Neb] 2.5 mg IH TID PRN 11/13/16 [History] Calcitriol [Rocaltrol] 0.25 mcg PO DAILY 11/13/16 [History] Tiotropium [Spiriva] 18 mcg IH 0700 11/13/16 [History] Tramadol HCl [Ultram] 50 mg PO Q6H PRN 11/13/16 [History] Allergies Sulfa (Sulfonamide Antibiotics) Allergy (Verified 05/25/16 07:08) See Comments patient cannot remember reaction to medication All Systems Review: A 10-system review of systems was performed and is negative for pertinent findings except as documented above in the HPI. Physical Examination Vital Signs, Last 4 Hours Temp Pulse Resp BP Pulse Ox 11/15/16 08:34 94 11/15/16 06:57 97.7 F 100 18 107/77 94 Results 11/15/16 06:01 11/15/16 06:01 Lab Results 11/15/16 11/15/16 11/15/16 00:00 06:01 06:01 WBC 6.0 Hgb 11.4 L Hct 38.1 Plt Count 121 L INR 1.2 APTT 56.2 H D Sodium Potassium Chloride Carbon Dioxide BUN Creatinine Glucose Calcium Magnesium 11/15/16 11/15/16 06:01 07:46 WBC Hgb Hct Plt Count INR APTT 126.2 H* D Sodium 141 Potassium 4.1 Chloride 105 Carbon Dioxide 31 H BUN 24 H Creatinine 0.85 Glucose 93 Calcium 9.5 Magnesium 1.5 L Consult Discharge Plan - Plan Referrals: Haven Laurent MD [Primary Care Provider] -
--- NOTE | 2016-11-15 10:00 | Cardiology Progress Note ---
Date of Encounter: 11/15/16 Time of Encounter: 09:00 Assessment and Plan (1) Atrial fibrillation with RVR Current Visit: Yes Status: Acute This is a resident progress note pending review by attending plaster model and mold maker Ejection fraction came back at 35% Discontinue Cardizem and Increase Coreg (orders placed) [id number] of 5, no h/o GI or other bleed per patient Anticoagulation with novel vs. Coumadin. Call placed to patient's pharmacy and both Eliquis and Xarelto would cost the patient $168/mo. Discussed with patient and family and it sounds like Coumadin will be best option for her although she wants to think about it (2) CHF (congestive heart failure) Current Visit: Yes Status: Chronic Significant decrease in ejection fraction from 60% in February 2015 to 35% currently (was 20-25% in 2011 and cath at that time showed moderate coronary disease, medical management recommended) Patient currently clinically stable with negative troponins. Drop in EF possibly tachycardia induced. Non-acute from cardiology standpoint Patient's breathing and volume status are currently stable Qualifiers: Congestive heart failure type: diastolic Congestive heart failure chronicity: chronic Qualified Code(s): I50.32 - Chronic diastolic (congestive ) heart failure (3) Aortic aneurysm Current Visit: Yes Status: Acute (4) Essential hypertension Current Visit: Yes Status: Chronic BP stable Continue current medications Discussion w patient/family: The assessment and plan as outlined above was discussed with the patient and/or family members who expressed understanding and agreement. All questions were answered. Thank you for involving us in the care of your patient. Please call with any questions. Subjective Principal diagnosis: a. fib Interval history: Patient seen and examined at bedside. She denies chest pain, shortness of breath, palpitations, or new complaints. Objective Vital Signs, Last 4 Hours Temp Pulse Resp BP Pulse Ox 11/15/16 08:34 94 11/15/16 06:57 97.7 F 100 18 107/77 94 General: Conversant, No Apparent Distress Cardiac: Normal S1 and S2, No Murmur, Other (irregularly irregular rate) Lungs: Normal Breath Sounds, No Wheeze, Rales, Rhonchi Neuro: Alert and responsive Extremities: No Cyanosis, Normal Pulses, Other (1+ pitting pedal edema) Results 11/15/16 06:01 11/15/16 06:01 Lab Results 11/15/16 11/15/16 11/15/16 00:00 06:01 06:01 WBC 6.0 Hgb 11.4 L Hct 38.1 Plt Count 121 L INR 1.2 APTT 56.2 H D Sodium Potassium Chloride Carbon Dioxide BUN Creatinine Glucose Calcium Magnesium 11/15/16 11/15/16 06:01 07:46 WBC Hgb Hct Plt Count INR APTT 126.2 H* D Sodium 141 Potassium 4.1 Chloride 105 Carbon Dioxide 31 H BUN 24 H Creatinine 0.85 Glucose 93 Calcium 9.5 Magnesium 1.5 L Consult Discharge Plan - Plan Referrals: Haven Laurent MD [Primary Care Provider] -
[2016-11-15] MEDS: Budesonide/Formoterol 160/4.5 MDI IH SCH ×2 (10:03→23:17)
[2016-11-15] MEDS: Furosemide 20 MG/2 ML VIAL IVP SCH ×2 (12:41→18:54)
--- NOTE | 2016-11-15 15:26 | Event Note ---
Date of Encounter: 11/15/16 Time of Encounter: 15:20 - Cardiology Event Note Patient reevaluated with current heart rate A. fib in the 80s to 90s and systolic pressure in the 100s. Continue with current dose of beta jorge. Recommend monitor her rate and blood pressure overnight. Patient remains on heparin drip for A. fib and DVT. Lengthy discussion with patient and family regarding Coumadin versus NOAC. Mcdaniels check noted for Eliquis and Xarelto around $160 per month. Patient currently explained her options. Appears to be leaning toward Eliquis. Discussed and reviewed with primary service. 30 day free card left on chart. Would recommend bridging with heparin due to DVT if decides to proceed with Coumadin, otherwise if proceed with Eliquis would be ok to dc to home. Cardiology will sign off, follow-up scheduled, re-consult as needed. All questions answered.
[2016-11-15] MEDS: Heparin 25,000 UNIT/500 ML D5W 25,000 UNIT/500 ML MLS IVC SCH (18:30)
[2016-11-15 20:32] LABS: Basophils # 0.1 K/mcL (0.0-0.2); Basophils % 0.9 %; Eosinophils # 0.2 K/mcL (0.0-0.6); Eosinophils % 3.3 %; Hematocrit 38.9 % (35.3-44.9); Hemoglobin 11.6 g/dL (11.5-15.4); Immature Granulocytes % 0.3 % (0-4); Lymphocytes # 0.8 K/mcL (0.6-4.6); Lymphocytes % 10.6 %; Mean Corpuscular HGB Conc 29.8 g/dL (31.6-35.5); Mean Corpuscular Hemoglobin 29.3 pg (28.0-33.3); Mean Corpuscular Volume 98.2 fL (83.0-100.0); Mean Platelet Volume 11.4 fL (9.4-12.4); Monocytes # 0.4 K/mcL (0.0-1.3); Monocytes % 5.5 %; Neutrophils # 5.6 K/mcL (1.6-8.9); Platelet Count 128 K/mcL (140-400); Red Blood Count 3.96 M/mcL (3.82-4.97); Red Cell Distribution Width 15.5 % (11.5-14.5); Segmented Neutrophils % 79.4 %
[2016-11-16] MEDS: traMADol 50 MG TABLET PO PRN (04:03)
[2016-11-16] MEDS: Ipratropium 1 PUFF INHALER IH SCH ×4 (04:23→22:45)
[2016-11-16] MEDS: Levalbuterol 1 PUFF INHALER IH SCH ×4 (04:23→22:45)
[2016-11-16 06:48] LABS: Basophils % 0.6 %; Eosinophils # 0.2 K/mcL (0.0-0.6); Eosinophils % 3.7 %; Hematocrit 38.1 % (35.3-44.9); Hemoglobin 11.5 g/dL (11.5-15.4); Immature Granulocytes % 0.3 % (0-4); Lymphocytes # 0.8 K/mcL (0.6-4.6); Mean Corpuscular HGB Conc 30.2 g/dL (31.6-35.5); Mean Corpuscular Hemoglobin 29.3 pg (28.0-33.3); Mean Corpuscular Volume 96.9 fL (83.0-100.0); Mean Platelet Volume 11.2 fL (9.4-12.4); Monocytes # 0.3 K/mcL (0.0-1.3); Neutrophils # 4.9 K/mcL (1.6-8.9); Platelet Count 122 K/mcL (140-400); Red Blood Count 3.93 M/mcL (3.82-4.97); Red Cell Distribution Width 15.4 % (11.5-14.5); Segmented Neutrophils % 78.4 %
[2016-11-16 06:56] LABS: Alanine Aminotransferase 14 Units/L (0-55); Albumin 2.6 g/dL (3.5-5.0); Albumin/Globulin Ratio 1.1 (1.1-2.2); Alkaline Phosphatase 137 Units/L (38-126); Aspartate Amino Transferase 14 Units/L (5-34); BUN/Creatinine Ratio 26 (6-26); Bilirubin,Total 0.8 mg/dL (0.2-1.2); Blood Urea Nitrogen 25 mg/dL (7-20); Calcium 9.5 mg/dL (8.6-10.8); Carbon Dioxide 33 mEq/L (19-29); Chloride 103 mEq/L (98-109); Globulin 2.4 g/dL (2.4-3.5); Glucose 96 mg/dL (70-99); Magnesium 1.5 mg/dL (1.6-2.6); Osmolality,Calculated 294 (280-300); Potassium 4.1 mEq/L (3.5-4.5); Sodium 140 mEq/L (136-145); eGFR For African Americans > 60 (> 60); eGFR For Non-African Americans 54 (> 60)
[2016-11-16] MEDS: Aspirin Enteric Coated 81 MG Tablet PO SCH (09:30)
[2016-11-16] MEDS: Iron Polysaccharide Complex 150 MG CAPSULE PO SCH (09:30)
[2016-11-16] MEDS: Furosemide 20 MG/2 ML VIAL IVP SCH ×2 (09:33→17:08)
[2016-11-16] MEDS: Nystatin Cream 15 GM TUBE TP SCH ×3 (09:33→20:54)
[2016-11-16] MEDS ORDERED: Magnesium Sulfate 1 GM in D5% in Water 100 ML IVPB ONE (10:17)
[2016-11-16] MEDS: Budesonide/Formoterol 160/4.5 MDI IH SCH ×2 (10:33→22:46)
--- NOTE | 2016-11-16 10:49 | Cardiology Progress Note ---
Date of Encounter: 11/16/16 Time of Encounter: 10:50 Assessment and Plan (1) Atrial fibrillation with RVR Current Visit: Yes Status: Acute Per Cardiology: Asked to re-evaluate patient this morning due to A. fib in the 120s to 140s. CT - PE. Patient has been receiving Coreg 37.5 mg by mouth twice a day with current systolic pressures in the 100s to 110s. Average heart rate on telemetry the past 8 hours 100, atrial fibrillation. Currently on telemetry fluctuating 90s to 130s. Will discontinue Coreg and start Toprol XL 50mg PO daily for now ( received Coreg this am). Will monitor heart rate and blood pressure closely. Ejection fraction came back at 35%-- recommend avoid CCB. If needed, can consider amio. Regarding long-term anticoagulation, currently on IV heparin drip with a [id number] of 5, no h/o GI or other bleed per patient. Call placed to patient' s pharmacy and both Eliquis and Xarelto would cost the patient $168/mo. Patient and family evaluating Coumadin vs DOAC. (2) Hypomagnesemia Current Visit: Yes Status: Acute Per Cardiology: Mg = 1.5. Will increase Mg rider to 2gms. On Mag oxide. Continue to monitor closely with diuresis. Will aim for goal 2.0 since afib with RVR. (3) Hypothyroidism Current Visit: Yes Status: Chronic Per Cardiology: TSK ok. On synthroid. Qualifiers: Hypothyroidism type: unspecified Qualified Code(s): E03.9 - Hypothyroidism , unspecified (4) DVT (deep venous thrombosis) Current Visit: Yes Status: Acute Per Cardiology: Venous duplex showed right posterior tibial acute thrombus. Again, currently anticoagulated with heparin drip. If were to start Coumadin, recommend bridging with IV Hep gtt until INR therapeutic at 2.0-3.0. Anticipate decision this afternoon. Qualifiers: DVT location: lower extremity Affected thrombotic vein of extremity: popliteal Laterality: right Chronicity: acute Qualified Code(s): I82.431 - Acute embolism and thrombosis of right popliteal vein (5) Nonischemic cardiomyopathy Current Visit: No Status: Acute Per Cardiology: EF on echo 20% in 2011 with subsequent improvement to 60% in 2014. Current echo shows EF 35%. BNP upon arrival 3252. CT scan shows tiny bilateral pleural effusions. Relatively euvolemic on exam. On Lasix 20 mg IV twice a day. Net I&O during hospital stay -97ml. we'll perform daily weights, strict I&O, place on 1500 mL fluid resection. 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 (6) CAD (coronary artery disease) Current Visit: No Status: Chronic Per Cardiology: Catheterization 2011 showed left main 50%, proximal to mid RCA 30-40%, and proximal circumflex 40% lesions. Troponins negative 3. Chest pain free. Patient had negative nuclear stress test for screening of her infarct in May 2016. Gated EF on stress test 58%. Patient reviewed and discussed with Dr. Sukhi Huerta-- no recs for [facility] at this point. On aspirin, statin, beta jorge. Qualifiers: Coronary Disease-Associated Artery/Lesion type: [place] artery [place] vs. transplanted heart: [place] heart Associated angina: without angina Qualified Code(s): I25.10 - Atherosclerotic heart disease of [place] coronary artery without angina pectoris (7) Aortic aneurysm Current Visit: Yes Status: Acute Per Cardiology: Incidental finding on CT scan of 5.0 cm ascending aortic aneurysm. Further management per primary service. Rec referral to CT surgery for monitoring. Qualifiers: Aortic location: thoracic aorta Presence of rupture: without rupture Qualified Code(s): I71.2 - Thoracic aortic aneurysm, without rupture Discussion w patient/family: The assessment and plan as outlined above was discussed with the patient and/or family members who expressed understanding and agreement. All questions were answered. Thank you for involving us in the care of your patient. Please call with any questions. DC Planning: recommend evaluate for rehab vs home health. Subjective Principal diagnosis: a. fib Interval history: Patient denies any chest pain, shortness of breath, palpitations. Denies any concerns or complaints. Objective Vital Signs, Last 4 Hours Temp Pulse Resp BP Pulse Ox 11/16/16 10:33 16 97 11/16/16 08:00 97.3 F L 47 16 117/68 97 General: Conversant, No Apparent Distress HEENT: Atraumatic, Normocephaly, Mucus Membranes Moist Neck: No JVD, Normal carotid pulses Cardiac: Normal S1 and S2, No Murmur, Other (Irregularly irregular) Lungs: Normal Breath Sounds, No Wheeze, Rales, Rhonchi Neuro: Alert and responsive, No focal deficits noted Skin: No rashes noted on visualized skin Musculoskeletal: No Chest Wall Tenderness, Other (Up in chair) Extremities: No Clubbing, No Cyanosis, No Edema, Normal Pulses Results 11/16/16 06:27 11/16/16 06:27 Lab Results Laboratory Tests 11/14/16 11/16/16 01:19 06:27 Creatinine 0.98 Est GFR (Non-Af Amer) 54 L Magnesium 1.5 L TSH 3.010 Active Medications Acetaminophen (Tylenol) 650 mg PO Q6HR PRN PRN Reason: Mild Pain (1-3) Stop: 05/15/17 23:54 Aspirin (Aspirin Ec) 81 mg PO DAILY MRAYA Stop: 05/16/17 09:01 Last Admin: 11/16/16 09:30 Dose: 81 mg Atorvastatin Calcium (Lipitor) 40 mg PO HS MARYA Stop: 05/16/17 21:01 Last Admin: 11/15/16 23:13 Dose: 40 mg Budesonide/Formoterol Fumarate (Symbicort) 2 puff IH BIDRESP MARYA PRN Reason: Protocol Stop: 05/16/17 10:01 Last Admin: 11/16/16 10:33 Dose: 2 puff Calcitriol (Rocaltrol) 0.25 mcg PO DAILY MARYA Stop: 05/16/17 09:01 Last Admin: 11/16/16 09:31 Dose: 0.25 mcg Calcium Carbonate (Tums) 1,500 mg PO BID MARYA Stop: 05/16/17 09:01 Last Admin: 11/16/16 09:32 Dose: 1,500 mg Furosemide (Lasix) 20 mg IVP BIDDIURETIC MARYA Stop: 05/17/17 11:14 Last Admin: 11/16/16 09:33 Dose: 20 mg Heparin Sodium (Porcine) (Heparin) 4,400 unit 70 unit/kg (4400 unit) IVP Q6HR PRN PRN Reason: SEE COMMENTS Stop: 05/16/17 10:31 Heparin Sodium (Porcine) (Heparin) 2,200 unit 35 unit/kg (2200 unit) IVP Q6H PRN PRN Reason: SEE COMMENTS Stop: 05/16/17 10:31 Last Admin: 11/15/16 04:15 Dose: 2,200 unit Heparin Sodium/Dextrose (Heparin 25,000 Unit/500 Ml D5w) 25,000 unit in 500 mls @ 17.724 mls/hr IVC .Q24H MARYA; 14 UNIT/KG/HR PRN Reason: Protocol Stop: 05/16/17 10:31 Last Titration: 11/16/16 07:35 Dose: 17 unit/kg/hr, 21.522 mls/hr Magnesium Sulfate 2 gm/ (Dextrose) 104 mls @ 50 mls/hr IVPB ONCE ONE Stop: 11/16/16 12:54 Ipratropium [place] (Atrovent Inhaler) 2 puff IH [id number] [facility] Stop: 05/16/17 22:01 Last Admin: 11/16/16 10:33 Dose: 2 puff Levalbuterol HCl (Xopenex) 1 puff IH [id number] [facility] Stop: 05/16/17 17:16 Last Admin: 11/16/16 10:33 Dose: 1 puff Levothyroxine Sodium (Synthroid) 50 mcg PO QAM [facility] Stop: 05/16/17 09:01 Last Admin: 11/16/16 09:31 Dose: 50 mcg Lorazepam (Ativan) 0.5 mg PO BID PRN PRN Reason: Anxiety Stop: 05/16/17 19:00 Magnesium Oxide (Mag-Ox) 400 mg PO BID MARYA PRN Reason: Protocol Stop: 05/18/17 10:31 Metoprolol Succinate (Toprol Xl) 50 mg PO DAILY [facility] Stop: 05/18/17 11:01 Naloxone HCl (Narcan) 0.4 mg IVP Q2MIN PRN PRN Reason: Opioid Reversal Stop: 05/15/17 23:54 Nystatin (Mycostatin Cream) 1 appl TP TID [facility] Stop: 05/16/17 12:11 Last Admin: 11/16/16 09:33 Dose: 1 appl Ondansetron HCl (Zofran) 4 mg IVP Q8HR PRN PRN Reason: Nausea And Vomiting Stop: 05/15/17 23:54 Polysaccharide Iron Complex (Ferrex 150) 300 mg PO DAILY [facility] Stop: 05/16/17 09:01 Last Admin: 11/16/16 09:30 Dose: 300 mg Tramadol HCl (Ultram) 50 mg PO Q6H PRN PRN Reason: Severe Pain Stop: 05/16/17 00:41 Last Admin: 11/16/16 04:03 Dose: 50 mg - Imaging and Cardiology Echo: report reviewed - EKG Interpretation EKG results cardiology: other (Tele reviewed with avg HR 100 past 8 hrs, currently 100, has been fluctuating 120's-140's this am) Consult Discharge Plan - Plan Referrals: Haven Laurent MD [Primary Care Provider] -
[2016-11-16] MEDS ORDERED: Magnesium Sulfate 2 GM in D5% in Water 100 ML IVPB ONE (10:50)
--- NOTE | 2016-11-16 10:57 | Internal Med Progress Note ---
<Primitivo Shine - Last Filed: 11/16/16 15:23> Date of Encounter: 11/16/16 Time of Encounter: 10:46 - Assessment and plan (1) COPD (chronic obstructive pulmonary disease) Current Visit: Yes Status: Chronic Assessment and plan: Known history of COPD, patient denies recent smoking. Said that she had not been using her 2 L of oxygen at home until recently and she felt that she had needed a more continuously. - No wheezing or increasing oxygen demand, no purulent sputum. Plan: -Continue Symbicort, ipratropium inhalers Qualifiers: COPD type: emphysema Emphysema type: panlobular Qualified Code(s): J43.1 - Panlobular emphysema (2) CAD (coronary artery disease) Current Visit: No Status: Chronic Assessment and plan: Known history of coronary artery disease and bilateral peripheral artery disease -severe. Patient in recent iliac endarterectomy in late 2015. Known history of systolic heart failure with reduced ejection fraction. Plan: - Continue Toprol X, atorvastatin 40 mg, aspirin Qualifiers: Coronary Disease-Associated Artery/Lesion type: [place] artery [place] vs. transplanted heart: [place] heart Associated angina: without angina Qualified Code(s): I25.10 - Atherosclerotic heart disease of [place] coronary artery without angina pectoris (3) Essential hypertension Current Visit: Yes Status: Chronic Assessment and plan: Patient has known history of hypertension, current blood pressure stable. plan - Patient on Toprol XL, blood pressure stable. (4) Atrial fibrillation with RVR Current Visit: Yes Status: Acute Assessment and plan: Patient found to be in new onset atrial fibrillation with RVR and started on Cardizem drip, patient is currently off Cardizem drip with a heart rate of roughly around 100. -Patient already on beta jorge at home. -TSH performed yesterday normal, troponin level within normal range, magnesium 1.5 receiving current replacement. 11/16/2016: Patient found to be in A-fib RVR with HR 140's and decreased oxygen levels with activity. Plan: - Cardiology following Switched beta jorge to Metoprolol - [id number] of 5 will require assisted anticoagulation if not a fall risk. (5) DVT (deep venous thrombosis) Current Visit: Yes Status: Acute Assessment and plan: Patient is on heparin drip for DVT. -Continue heparin drip - Repeat Doppler of right lower extremity - Plan for oral anticoagulation in the outpatient setting. Qualifiers: DVT location: lower extremity Affected thrombotic vein of extremity: popliteal Laterality: right Chronicity: acute Qualified Code(s): I82.431 - Acute embolism and thrombosis of right popliteal vein (6) CKD (chronic kidney disease) Current Visit: Yes Status: Acute Assessment and plan: Patient has stage III chronic kidney disease. Renal function stable Plan: - Renally dose antibiotics and avoid nephrotoxic medications - Follow renal function daily. Qualifiers: Chronic kidney disease stage: stage 3 (moderate) Qualified Code(s): N18.3 - Chronic kidney disease, stage 3 (moderate) (7) Aortic aneurysm Current Visit: Yes Status: Acute Assessment and plan: Patient has an ascending aortic aneurysm that is 5 cm. Plan: - Vascular surgery evaluation. Qualifiers: Aortic location: thoracic aorta Presence of rupture: without rupture Qualified Code(s): I71.2 - Thoracic aortic aneurysm, without rupture (8) Hypothyroidism Current Visit: Yes Status: Chronic Assessment and plan: Patient has known hypothyroidism on levothyroxine at home. - TSH is within normal limits. Plan: -Continue home dose levothyroxine patient. Qualifiers: Hypothyroidism type: unspecified Qualified Code(s): E03.9 - Hypothyroidism , unspecified - Subjective Interval history: Miss Palafox 81-year-old female seen and evaluated patient bedside this morning. She is alert awake interactive no acute distress. She complains of shortness of breath and palpitations and does not feel her best day. She said overall she just does not feel well. She denies any fevers, chills, sweating, chest pain, Abdominal pain, N/V/D/C. She had not decided on an anticoagulation yet but is leaning towards xarelto vs. Elequis. - Constitutional Vitals: Temp Pulse Resp BP Pulse Ox 97.3 F L 47 16 117/68 97 11/16/16 08:00 11/16/16 08:00 11/16/16 10:33 11/16/16 08:00 11/16/16 10:33 Exam: General: Patient alert, awake, oriented 3, interactive, in no acute distress HEENT: Normocephalic, atraumatic, pupils equal reactive to light, nasal cavity patent and open septum median position, oral mucosa moist, uvula midline, neck supple trachea midline no palpable lymphadenopathy, no thyromegaly. Chest: Symmetric bilateral correlating with respiratory effort, effort nonlabored. Cardiac: Irregularly irregular heart rate and rhythm,RVR. bilateral JVD present no bruits appreciated bilateral carotids, Radial pulses 2+ bilateral, posterior tibial and dorsal pedal pulses 2+ bilateral. Respiratory: Crackles appreciated in bilateral lung bases, clear to auscultation was lung haro. Abdomen: Soft, nontender, positive bowel sounds, no palpable masses appreciated on examination, dependent edema appreciated in bilateral lower back region and gluteus ana lilia. Extremities: Symmetric bilateral, patient has erythema and 1+ edema on the right lower extremity and 1+ edema on the left. patient moving all 4 extremities spontaneously. Neurologic: No focal deficits appreciated on examination. Face symmetric, muscle strength symmetric bilateral upper and lower extremities. Internal Medicine: Result - Labs CBC & Chem 7: 11/16/16 06:27 11/16/16 06:27 Labs: Short CBC 11/15/16 11/16/16 Range/Units 20:03 06:27 WBC 7.1 6.2 (4.3-11.1) K/mcL Hgb 11.6 11.5 (11.5-15.4) g/dL Hct 38.9 38.1 (35.3-44.9) % Plt Count 128 L 122 L (140-400) K/mcL Neutrophils # 5.6 4.9 (1.6-8.9) K/mcL BMP 11/16/16 06:27 Sodium 140 Potassium 4.1 Chloride 103 Carbon Dioxide 33 H BUN 25 H Creatinine 0.98 Glucose 96 Calcium 9.5 Liver Function 11/16/16 Range/Units 06:27 Total Bilirubin 0.8 (0.2-1.2) mg/dL AST 14 (5-34) Units/L ALT 14 (0-55) Units/L Alkaline Phosphatase 137 H (38-126) Units/L Albumin 2.6 L (3.5-5.0) g/dL - ABG Interpretation ABG results: PT/INR, D-dimer PT 12.7 Seconds (9.4-12.1) H 11/15/16 06:01 Consult Discharge Plan - Plan Referrals: Haven Laurent MD [Primary Care Provider] - <Sera Saucedo E - Last Filed: 11/16/16 15:49> Date of Encounter: 11/16/16 - Constitutional Vitals: Temp Pulse Resp BP Pulse Ox 98.4 F 81 16 104/56 94 11/16/16 15:31 11/16/16 15:31 11/16/16 15:31 11/16/16 15:31 11/16/16 15:31 Internal Medicine: Result - Labs CBC & Chem 7: 11/16/16 06:27 11/16/16 06:27 Labs: Short CBC 11/15/16 11/16/16 Range/Units 20:03 06:27 WBC 7.1 6.2 (4.3-11.1) K/mcL Hgb 11.6 11.5 (11.5-15.4) g/dL Hct 38.9 38.1 (35.3-44.9) % Plt Count 128 L 122 L (140-400) K/mcL Neutrophils # 5.6 4.9 (1.6-8.9) K/mcL BMP 11/16/16 06:27 Sodium 140 Potassium 4.1 Chloride 103 Carbon Dioxide 33 H BUN 25 H Creatinine 0.98 Glucose 96 Calcium 9.5 Liver Function 11/16/16 Range/Units 06:27 Total Bilirubin 0.8 (0.2-1.2) mg/dL AST 14 (5-34) Units/L ALT 14 (0-55) Units/L Alkaline Phosphatase 137 H (38-126) Units/L Albumin 2.6 L (3.5-5.0) g/dL - ABG Interpretation ABG results: PT/INR, D-dimer PT 12.7 Seconds (9.4-12.1) H 11/15/16 06:01 - Attending Attestation I examined this patient and reviewed laboratory, imaging and all diagnostic data. My medical decision-making was reviewed with Dr Darek Shine - Resident Physician. I agree with the documented findings, disposition and treatment plan as described above.
[2016-11-16] MEDS ORDERED: Metoprolol XL (24 HR) Succ 50 MG TAB.ER.24H PO SCH (11:00)
[2016-11-16] MEDS ORDERED: Metoprolol XL (24 HR) Succ 25 MG TAB.ER.24H PO SCH (11:39)
[2016-11-16] MEDS ORDERED: Metoprolol XL (24 HR) Succ 25 MG TAB.ER.24H PO ONE (12:15)
[2016-11-16] MEDS: Magnesium Oxide 400 MG TABLET PO SCH ×2 (12:23→20:53)
--- NOTE | 2016-11-16 16:05 | Event Note ---
Date of Encounter: 11/16/16 Time of Encounter: 16:05 - Cardiology Event Note Reevaluated and remains A. fib however currently rate controlled in the 80s to 90s. Systolic blood pressure in the 100s. We'll continue to monitor heart rate and blood pressure overnight. Patient and family agreeable to proceed with Eliquis. Will start 10MG po bid for 7 days for DVT and then decrease to 5 mg by mouth twice a day for DVT, afib. Stop IV heparin drip. Cardiology will continue to follow.
[2016-11-16] MEDS: APIXABAN 5 MG TABLET PO SCH (17:08)
[2016-11-17] MEDS: Ipratropium 1 PUFF INHALER IH SCH ×3 (04:25→15:40)
[2016-11-17] MEDS: Levalbuterol 1 PUFF INHALER IH SCH ×3 (04:25→15:41)
--- NOTE | 2016-11-17 08:06 | Discharge Summary ---
<Primitivo Shine - Last Filed: 11/17/16 15:23> Date of Encounter: 11/17/16 Time of Encounter: 08:02 - Discharge Diagnosis (1) COPD (chronic obstructive pulmonary disease) Priority: Primary Status: Chronic Qualifiers: COPD type: emphysema Emphysema type: panlobular Qualified Code(s): J43.1 - Panlobular emphysema (2) CAD (coronary artery disease) Priority: Primary Status: Chronic Qualifiers: Coronary Disease-Associated Artery/Lesion type: [place] artery [place] vs. transplanted heart: [place] heart Associated angina: without angina Qualified Code(s): I25.10 - Atherosclerotic heart disease of [place] coronary artery without angina pectoris (3) Essential hypertension Priority: Primary Status: Chronic (4) Atrial fibrillation with RVR Priority: Primary Status: Acute (5) DVT (deep venous thrombosis) Priority: Primary Status: Acute Qualifiers: DVT location: lower extremity Affected thrombotic vein of extremity: popliteal Laterality: right Chronicity: acute Qualified Code(s): I82.431 - Acute embolism and thrombosis of right popliteal vein (6) CKD (chronic kidney disease) Priority: Primary Status: Acute Qualifiers: Chronic kidney disease stage: stage 3 (moderate) Qualified Code(s): N18.3 - Chronic kidney disease, stage 3 (moderate) (7) Aortic aneurysm Priority: Secondary Status: Acute Qualifiers: Aortic location: thoracic aorta Presence of rupture: without rupture Qualified Code(s): I71.2 - Thoracic aortic aneurysm, without rupture (8) Hypothyroidism Priority: Secondary Status: Chronic Qualifiers: Hypothyroidism type: unspecified Qualified Code(s): E03.9 - Hypothyroidism , unspecified - Discharge Medications Prescriptions: Apixaban [Eliquis] 5 mg PO BID 30 Days Metoprolol XL (24 HR) Succ [Toprol Xl] 50 mg PO DAILY 30 Days Home Medications: Albuterol Sulfate [Ventolin Hfa] 2 puff IH TID PRN 01/24/16 [History] Aspirin [Lo-Dose Aspirin EC] 81 mg PO DAILY 01/24/16 [History] Atorvastatin [Lipitor] 40 mg PO HS 01/24/16 [History] Calcium Carbonate [Calcium] 1,500 mg PO BID 01/24/16 [History] Furosemide [Lasix] 20 mg PO DAILY 01/24/16 [History] Iron Polysaccharide Complex [Ferrex 150] 300 mg PO DAILY 01/24/16 [History] Levothyroxine Sodium [Tirosint] 50 mcg PO QAM 01/24/16 [History] Budesonide/Formoterol 160/4.5 [Symbicort 160/4.5] 2 puff IH BIDR 04/26/16 [ History] LORazepam [Ativan] 0.5 mg PO BID PRN 05/25/16 [History] Oxygen 2 l NS DAILY PRN 05/25/16 [History] Albuterol Neb [Proventil Neb] 2.5 mg IH TID PRN 11/13/16 [History] Calcitriol [Rocaltrol] 0.25 mcg PO DAILY 11/13/16 [History] Tiotropium [Spiriva] 18 mcg IH 0700 11/13/16 [History] Tramadol HCl [Ultram] 50 mg PO Q6H PRN 11/13/16 [History] Apixaban [Eliquis] 5 mg PO BID 30 Days 11/16/16 [Rx] Metoprolol XL (24 HR) Succ [Toprol Xl] 50 mg PO DAILY 30 Days 11/17/16 [Rx] Allergies/Adverse Reactions: Allergies Sulfa (Sulfonamide Antibiotics) Allergy (Verified 05/25/16 07:08) See Comments patient cannot remember reaction to medication Date of admission: 11/14/16 00:04 Primary care physician: Haven Laurent Consults: 11/14/16 00:36 Consult to Government Auditor [CONS] Routine Reason for SW Consult: Health care proxy 11/14/16 00:38 Consult to Cardiology [CONS] Routine Comment: Consulting Provider: Cardiology Monique Reason for Consult: New onset A.Fib Call Completed: Yes 11/15/16 11:16 Consult to Physical Therapy [CONS] Routine Comment: Evaluate, develop and implement POC Reason for Consult: patient has limited mobility Discharging clinician: Primitivo Shine Anticipated date of discharge: 11/17/16 - Patient Status Disposition: Home Health Service Condition: Good Functional capacity at discharge: uses cane/walker Overall status at discharge: patient is progressing back to baseline - Discharge Instructions Instructions: Metoprolol (By mouth), Apixaban (By mouth), Atrial Fibrillation ( DC), Deep Venous Thrombosis (DC), Deep Venous Thrombosis (GEN) Follow Up With: Haven Laurent MD [Primary Care Provider] - Elli Arrieta MD [Partnered Physician] - Additional Instructions: 1. Follow-up with your primary care provider in the next 3-5 days 2. Take all prescriptions as prescribed, any concerns or questions contact her primary care provider. 3. Return to the emergency department if: Shortness of breath, chest pain, chest pressure, palpitations, any other concerning medical symptoms or signs including syncopal episodes. - Diet and Activity Activity: as per physical therapy Diet: advance to your usual diet Interval History: Mrs. Palafox 81-year-old female was a transfer from [place] after having a DVT found and in atrial fibrillation with RVR. She has a significant past medical history including systolic heart failure, COPD, hyperlipidemia, hypertension, osteoporosis, CKD, valvular heart disease. She was admitted to [facility] with atrial fibrillation with rapid ventricular rate and was started on a Cardizem drip. The patient already was taking Corgard 25 mg by mouth twice a day. She received a single dose of Lovenox prior to arrival. Cardiology was consult. She has a [id number] of 5 and started on heparin drip with discussion regarding Coumadin versus novel anticoagulation.echocardiogram shows moderate to severe LV systolic LVEF 35%, moderate aortic regurgitation, severe TR. During her inpatient stay she was also treated for her chronic medical conditions including COPD, CAD and hypertension. It was noted that she had a 5 cm aortic aneurysm upon examination. On 11/16/2016 the patient's heart rate increased into the 140s to 160s and she developed shortness of breath. Her rate control medications were reevaluated and adjusted. The patient remained overnight and after further evaluation was deemed stable for discharge on 11/17/2016 with a prescription for Toprol XL 50 mg daily. She will follow- up with her primary care provider and cardiology. A referral was made to cardiothoracic surgery regarding her 5 cm ascending aortic aneurysm for further evaluation and recommendations. She chose Eliquis for her noval anticoagulation after extensive discussion regarding cost and benefits versus risk. Hospital course: Ms. Palafox is a 81 year old female - Time Spent with Patient Total time spent providing and/or coordinating discharge services: - Constitutional Vitals: Temp Pulse Resp BP Pulse Ox 97.6 F 113 16 90/78 95 11/17/16 07:52 11/17/16 07:52 11/17/16 07:52 11/17/16 07:52 11/17/16 07:52 Exam: General: Patient alert, awake, oriented 3, interactive, in no acute distress HEENT: Normocephalic, atraumatic, pupils equal reactive to light, nasal cavity patent and open septum median position, oral mucosa moist, uvula midline, neck supple trachea midline no palpable lymphadenopathy, no thyromegaly. Chest: Symmetric bilateral correlating with respiratory effort, effort nonlabored. Cardiac: Irregularly irregular heart rate and rhythm,RVR. bilateral JVD present no bruits appreciated bilateral carotids, Radial pulses 2+ bilateral, posterior tibial and dorsal pedal pulses 2+ bilateral. Respiratory: Crackles appreciated in bilateral lung bases, clear to auscultation was lung haro. Abdomen: Soft, nontender, positive bowel sounds, no palpable masses appreciated on examination, dependent edema appreciated in bilateral lower back region and gluteus ana lilia. Extremities: Symmetric bilateral, patient has erythema and 1+ edema on the right lower extremity and 1+ edema on the left. patient moving all 4 extremities spontaneously. Neurologic: No focal deficits appreciated on examination. Face symmetric, muscle strength symmetric bilateral upper and lower extremities. <SherylSera E - Last Filed: 11/17/16 16:09> Date of Encounter: 11/17/16 Date of admission: 11/14/16 00:04 Primary care physician: Haven Laurent Consults: 11/14/16 00:36 Consult to Government Auditor [CONS] Routine Reason for SW Consult: Health care proxy 11/14/16 00:38 Consult to Cardiology [CONS] Routine Comment: Consulting Provider: Cardiology Monique Reason for Consult: New onset A.Fib Call Completed: Yes 11/15/16 11:16 Consult to Physical Therapy [CONS] Routine Comment: Evaluate, develop and implement POC Reason for Consult: patient has limited mobility Hospital course: Ms. Palafox is a 81 year old female - Time Spent with Patient Total time spent providing and/or coordinating discharge services: - Constitutional Vitals: Temp Pulse Resp BP Pulse Ox 98 F 106 18 114/59 95 11/17/16 12:00 11/17/16 12:00 11/17/16 15:46 11/17/16 15:46 11/17/16 15:46 - Attending Attestation I examined this patient and reviewed laboratory, imaging and all diagnostic data. My medical decision-making was reviewed with Dr Darek Shine - Resident Physician. I agree with the documented findings, disposition and treatment plan as described above.
[2016-11-17 08:36] LABS: Basophils # 0.1 K/mcL (0.0-0.2); Basophils % 0.7 %; Eosinophils # 0.2 K/mcL (0.0-0.6); Eosinophils % 2.8 %; Hematocrit 42.3 % (35.3-44.9); Hemoglobin 12.7 g/dL (11.5-15.4); Immature Granulocytes % 0.3 % (0-4); Lymphocytes # 0.6 K/mcL (0.6-4.6); Lymphocytes % 8.8 %; Mean Corpuscular Volume 96.6 fL (83.0-100.0); Mean Platelet Volume 11.2 fL (9.4-12.4); Monocytes # 0.3 K/mcL (0.0-1.3); Monocytes % 4.6 %; Neutrophils # 5.6 K/mcL (1.6-8.9); Platelet Count 153 K/mcL (140-400); Red Blood Count 4.38 M/mcL (3.82-4.97); Red Cell Distribution Width 15.4 % (11.5-14.5); Segmented Neutrophils % 82.8 %
[2016-11-17] MEDS: Iron Polysaccharide Complex 150 MG CAPSULE PO SCH (08:36)
[2016-11-17] MEDS: Magnesium Oxide 400 MG TABLET PO SCH (08:36)
[2016-11-17] MEDS: Aspirin Enteric Coated 81 MG Tablet PO SCH (08:36)
[2016-11-17] MEDS: APIXABAN 5 MG TABLET PO SCH (08:38)
[2016-11-17] MEDS: Furosemide 20 MG/2 ML VIAL IVP SCH (08:40)
[2016-11-17 08:52] LABS: Alanine Aminotransferase 18 Units/L (0-55); Albumin/Globulin Ratio 1.1 (1.1-2.2); Alkaline Phosphatase 152 Units/L (38-126); Aspartate Amino Transferase 20 Units/L (5-34); BUN/Creatinine Ratio 24 (6-26); Bilirubin,Total 0.8 mg/dL (0.2-1.2); Blood Urea Nitrogen 25 mg/dL (7-20); Calcium 9.8 mg/dL (8.6-10.8); Carbon Dioxide 34 mEq/L (19-29); Chloride 101 mEq/L (98-109); Globulin 2.8 g/dL (2.4-3.5); Glucose 95 mg/dL (70-99); Osmolality,Calculated 298 (280-300); Potassium 4.4 mEq/L (3.5-4.5); Sodium 142 mEq/L (136-145); Total Protein 5.8 g/dL (6.0-8.3); eGFR For African Americans > 60 (> 60); eGFR For Non-African Americans 51 (> 60)
[2016-11-17] MEDS ORDERED: Metoprolol XL (24 HR) Succ 50 MG TAB.ER.24H PO SCH (09:00)
[2016-11-17] MEDS: Budesonide/Formoterol 160/4.5 MDI IH SCH (10:39)
--- NOTE | 2016-11-17 11:32 | Cardiology Progress Note ---
Date of Encounter: 11/17/16 Time of Encounter: 08:45 Assessment and Plan (1) Atrial fibrillation with RVR Current Visit: Yes Status: Acute Per Cardiology: CT - PE. Currently on telemetry fluctuating 80's - 110's. On Toprol XL 25mg PO daily. Systolic blood pressure checked this morning (with proper sized blood pressure cuff) and systolically 120. Will increase ToprolXL to 50 mg by mouth daily. Continue to titrate beta jorge as needed based on heart rate and blood pressure. Ejection fraction came back at 35%-- recommend avoid CCB. Discussed with primary service. We'll sign off, re-consult as needed, possible DC home today, follow-up already scheduled. Regarding long-term anticoagulation, [id number] of 5, no h/o GI or other bleed per patient. Eliquis is $168/mo. Patient and family decided to go with Eliquis- - started on 10 mg by mouth twice a day yesterday with recs to continue for 7 days for DVT and then decrease to 5 mg by mouth twice a day for DVT and A. fib management. Also discussed with primary service. Appears to be tolerating with no bleeding or blood loss. (2) Hypomagnesemia Current Visit: Yes Status: Acute Per Cardiology: Improved to 1.9. On magnesium oxide by mouth. (3) Hypothyroidism Current Visit: Yes Status: Chronic Per Cardiology: TSK ok. On synthroid. Qualifiers: Hypothyroidism type: unspecified Qualified Code(s): E03.9 - Hypothyroidism , unspecified (4) DVT (deep venous thrombosis) Current Visit: Yes Status: Acute Per Cardiology: Venous duplex showed right posterior tibial acute thrombus. Now on Eliquis as above. Qualifiers: DVT location: lower extremity Affected thrombotic vein of extremity: popliteal Laterality: right Chronicity: acute Qualified Code(s): I82.431 - Acute embolism and thrombosis of right popliteal vein (5) Nonischemic cardiomyopathy Current Visit: No Status: Acute Per Cardiology: EF on echo 20% in 2011 with subsequent improvement to 60% in 2014. Current echo shows EF 35%. BNP upon arrival 3252. CT scan shows tiny bilateral pleural effusions. Relatively euvolemic on exam. On Lasix 20 mg IV twice a day. Net I&O during hospital stay -242ml. Continue daily weights, strict I&O, fluid resection. 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 (6) CAD (coronary artery disease) Current Visit: No Status: Chronic Per Cardiology: Catheterization 2011 showed left main 50%, proximal to mid RCA 30-40%, and proximal circumflex 40% lesions. Troponins negative 3. Chest pain free. Patient had negative nuclear stress test for screening of her infarct in May 2016. Gated EF on stress test 58%. Patient reviewed and discussed with Dr. Sukhi Huerta-- no recs for [facility] at this point. On aspirin, statin, beta jorge. Qualifiers: Coronary Disease-Associated Artery/Lesion type: [place] artery [place] vs. transplanted heart: [place] heart Associated angina: without angina Qualified Code(s): I25.10 - Atherosclerotic heart disease of [place] coronary artery without angina pectoris (7) Aortic aneurysm Current Visit: Yes Status: Acute Per Cardiology: Incidental finding on CT scan of 5.0 cm ascending aortic aneurysm. Further management per primary service. Rec referral to CT surgery for monitoring. Qualifiers: Aortic location: thoracic aorta Presence of rupture: without rupture Qualified Code(s): I71.2 - Thoracic aortic aneurysm, without rupture Discussion w patient/family: The assessment and plan as outlined above was discussed with the patient and/or family members who expressed understanding and agreement. All questions were answered. Thank you for involving us in the care of your patient. Please call with any questions. DC Planning: recommend evaluate for rehab vs home health. Subjective Principal diagnosis: Afib RVR, R DVT Interval history: Patient denies any chest pain, shortness of breath, palpitations. Denies any concerns or complaints. Denies any awareness any active bleeding or blood loss. Objective Vital Signs, Last 4 Hours Temp Pulse Resp BP Pulse Ox 11/17/16 07:52 97.6 F 113 16 90/78 95 General: Conversant, No Apparent Distress HEENT: Atraumatic, Normocephaly, Mucus Membranes Moist Cardiac: No Murmur, Other (Irregularly irregular) Lungs: Other (On the skin oxygen, he scattered rhonchi throughout) Neuro: Alert and responsive, No focal deficits noted Skin: No rashes noted on visualized skin Musculoskeletal: No Chest Wall Tenderness Extremities: No Clubbing, No Cyanosis, No Edema, Normal Pulses Results 11/17/16 08:24 11/17/16 08:24 Lab Results Laboratory Tests 06/05/2011/13/16 11/14/16 19:35 19:35 01:19 Hgb Hct Magnesium AST ALT Troponin I 0.03 0.02 B-Natriuretic Peptide 3252 H TSH 11/14/16 11/14/16 11/16/16 01:19 05:54 06:27 Hgb Hct Magnesium 1.5 L AST 14 ALT 14 Troponin I 0.03 B-Natriuretic Peptide TSH 3.010 11/17/16 08:24 Hgb 12.7 Hct 42.3 Magnesium AST ALT Troponin I B-Natriuretic Peptide TSH Laboratory Tests 11/17/16 08:24 Magnesium 1.9 Intake & Output 11/14/16 11/15/16 11/16/16 11/17/16 23:59 23:59 23:59 23:59 Intake Total 280 / 280 860.0 / 860.0 848 / 848 520 / 520 Output Total 450 / 450 875 / 875 1325 / 1325 100 / 100 Balance -170 / -170 -15.0 / -15.0 -477 / -477 420 / 420 Weight 93.1 kg 64.1 kg 64.3 kg Active Medications Acetaminophen (Tylenol) 650 mg PO Q6HR PRN PRN Reason: Mild Pain (1-3) Stop: 05/15/17 23:54 Apixaban (Eliquis) 10 mg PO BID [facility] Stop: 05/18/17 16:03 Last Admin: 11/17/16 08:38 Dose: 10 mg Aspirin (Aspirin Ec) 81 mg PO DAILY [facility] Stop: 05/16/17 09:01 Last Admin: 11/17/16 08:36 Dose: 81 mg Atorvastatin Calcium (Lipitor) 40 mg PO HS [facility] Stop: 05/16/17 21:01 Last Admin: 11/16/16 20:52 Dose: 40 mg Budesonide/Formoterol Fumarate (Symbicort) 2 puff IH BIDRESP MARYA PRN Reason: Protocol Stop: 05/16/17 10:01 Last Admin: 11/17/16 10:39 Dose: 2 puff Calcitriol (Rocaltrol) 0.25 mcg PO DAILY MARYA Stop: 05/16/17 09:01 Last Admin: 11/17/16 08:36 Dose: 0.25 mcg Calcium Carbonate (Tums) 1,500 mg PO BID [facility] Stop: 05/16/17 09:01 Last Admin: 11/17/16 08:36 Dose: 1,500 mg Furosemide (Lasix) 20 mg IVP BIDDIURETIC [facility] Stop: 05/17/17 11:14 Last Admin: 11/17/16 08:40 Dose: 20 mg Ipratropium [place] (Atrovent Inhaler) 2 puff IH [id number] MARYA Stop: 05/16/17 22:01 Last Admin: 11/17/16 10:38 Dose: 2 puff Levalbuterol HCl (Xopenex) 1 puff IH [id number] MARYA Stop: 05/16/17 17:16 Last Admin: 11/17/16 10:38 Dose: 1 puff Levothyroxine Sodium (Synthroid) 50 mcg PO QAM [facility] Stop: 05/16/17 09:01 Last Admin: 11/17/16 08:37 Dose: 50 mcg Lorazepam (Ativan) 0.5 mg PO BID PRN PRN Reason: Anxiety Stop: 05/16/17 19:00 Magnesium Oxide (Mag-Ox) 400 mg PO BID MARYA PRN Reason: Protocol Stop: 05/18/17 10:31 Last Admin: 11/17/16 08:36 Dose: 400 mg Metoprolol Succinate (Toprol Xl) 50 mg PO DAILY [facility] Stop: 05/19/17 09:01 Last Admin: 11/17/16 08:40 Dose: 50 mg Naloxone HCl (Narcan) 0.4 mg IVP Q2MIN PRN PRN Reason: Opioid Reversal Stop: 05/15/17 23:54 Nystatin (Mycostatin Cream) 1 appl TP TID [facility] Stop: 05/16/17 12:11 Last Admin: 11/16/16 20:54 Dose: 1 appl Ondansetron HCl (Zofran) 4 mg IVP Q8HR PRN PRN Reason: Nausea And Vomiting Stop: 05/15/17 23:54 Polysaccharide Iron Complex (Ferrex 150) 300 mg PO DAILY [facility] Stop: 05/16/17 09:01 Last Admin: 11/17/16 08:36 Dose: 300 mg Tramadol HCl (Ultram) 50 mg PO Q6H PRN PRN Reason: Severe Pain Stop: 05/16/17 00:41 Last Admin: 11/16/16 04:03 Dose: 50 mg - EKG Interpretation EKG results cardiology: other (remains afib, with HR 80's - 100's) Consult Discharge Plan - Plan Instructions: Atrial Fibrillation (DC) Referrals: Haven Laurent MD [Primary Care Provider] - Elli Arrieta MD [Partnered Physician] - Prescriptions: Apixaban [Eliquis] 5 mg PO BID 30 Days Metoprolol XL (24 HR) Succ [Toprol Xl] 50 mg PO DAILY 30 Days
[2016-11-17 12:19] VITALS: BP 114/59
--- NOTE | 2016-11-17 15:35 | Physician Discharge Referral ---
Home Health/Hosp Referral Info Transfer to: Home Health Provider in Charge Post Discharge: PCP - Diagnosis (1) COPD (chronic obstructive pulmonary disease) Priority: Primary Status: Chronic (2) CAD (coronary artery disease) Priority: Secondary Status: Chronic (3) Essential hypertension Priority: Primary Status: Chronic (4) Atrial fibrillation with RVR Priority: Primary Status: Acute (5) DVT (deep venous thrombosis) Priority: Primary Status: Acute (6) CKD (chronic kidney disease) Priority: Secondary Status: Acute (7) Aortic aneurysm Priority: Primary Status: Acute (8) Hypothyroidism Priority: Secondary Status: Chronic - Respiratory Orders Oxygen / L per min (home dose of 3 L) Smoking Cessation: Smoking cessation has been advised. For more information, call the [employer] Tobacco Quit Line at 3-460-ABWO-NOW. - Diet/Nutrition Diet/Nutrition Orders: Cardiac - Activity Activity Orders: Ambulate - Services Needed Following services are medically necessary services: Nursing, Home Health Aide, Physical Therapy, Occupational Therapy - Transfer Medications Prescriptions: Apixaban [Eliquis] 5 mg PO BID 30 Days Metoprolol XL (24 HR) Succ [Toprol Xl] 50 mg PO DAILY 30 Days Home Medications: Albuterol Sulfate [Ventolin Hfa] 2 puff IH TID PRN 01/24/16 [History] Aspirin [Lo-Dose Aspirin EC] 81 mg PO DAILY 01/24/16 [History] Atorvastatin [Lipitor] 40 mg PO HS 01/24/16 [History] Calcium Carbonate [Calcium] 1,500 mg PO BID 01/24/16 [History] Furosemide [Lasix] 20 mg PO DAILY 01/24/16 [History] Iron Polysaccharide Complex [Ferrex 150] 300 mg PO DAILY 01/24/16 [History] Levothyroxine Sodium [Tirosint] 50 mcg PO QAM 01/24/16 [History] Budesonide/Formoterol 160/4.5 [Symbicort 160/4.5] 2 puff IH BIDR 04/26/16 [ History] LORazepam [Ativan] 0.5 mg PO BID PRN 05/25/16 [History] Oxygen 2 l NS DAILY PRN 05/25/16 [History] Albuterol Neb [Proventil Neb] 2.5 mg IH TID PRN 11/13/16 [History] Calcitriol [Rocaltrol] 0.25 mcg PO DAILY 11/13/16 [History] Tiotropium [Spiriva] 18 mcg IH 0700 11/13/16 [History] Tramadol HCl [Ultram] 50 mg PO Q6H PRN 11/13/16 [History] Apixaban [Eliquis] 5 mg PO BID 30 Days 11/16/16 [Rx] Metoprolol XL (24 HR) Succ [Toprol Xl] 50 mg PO DAILY 30 Days 11/17/16 [Rx] Allergies/Adverse Reactions: Allergies Sulfa (Sulfonamide Antibiotics) Allergy (Verified 05/25/16 07:08) See Comments patient cannot remember reaction to medication Certification: Further, I certify that my clinical findings support that this patient is homebound (i.e. absences from home require considerable and taxing effort and are for medical reasons or mu-ism services or infrequently or short duration when for other reasons) because: Homebound Reason: Leaving home requires considerable and taxing effort due to condition, Severity of cardiac or pulmonary status limits activity tolerance Attestation: My signature below is to certify that this patient is under my care and that I, or nurse practitioner, or a physician's help desk assistant working with me, has a face-to -face encounter with this patient.
== END 2016-11-17 17:15 | disposition home health service (06) | DRG 300 ==
LOC: 2NENU 16:33 → EMEROO 16:33 → 2NENU 23:14 → SUATTDRO 11-14 00:04
PROVIDERS: ADMIT Internal Medicine; ATTEND Internal Medicine